=== PATIENT | male | born 1995 | race Caucasian/White ===

== ENCOUNTER 2020-05-10 16:28 | Emergency (ER) | payer OTHER ==
[~2020-05-10] VITALS: Ht 177.8 cm; Wt 72.7 kg
[2020-05-10] MEDS ORDERED: ACETAMINOPHEN 500 MG TABLET PO ONE (17:15)
[2020-05-10 18:00] VITALS: BP 130/85
== END 2020-05-10 18:17 | disposition home or self-care (01) ==
LOC: EMS 16:31
DX: S50.02XA Contusion of left elbow, initial encounter (principal); F17.200 Nicotine dependence, unspecified, uncomplicated; F12.90 Cannabis use, unspecified, uncomplicated; W01.0XXA Fall on same level from slipping, tripping and stumbling without subsequent striking against object, initial encounter; Y93.01 Activity, walking, marching and hiking; Y92.89 Other specified places as the place of occurrence of the external cause; Y99.8 Other external cause status

== ENCOUNTER 2021-11-07 09:31 | Emergency (ER) | payer OTHER ==
[~2021-11-07] VITALS: Ht 185.4 cm; Wt 96.4 kg
[2021-11-07 12:03] LABS: COVID AG,FIA SOURCE NASOPHARYNGEAL
[2021-11-07 12:32] VITALS: BP 110/82
[2021-11-07] MEDS ORDERED: OXYM30SP27 NASAL (12:52)
[2021-11-07] MEDS ORDERED: BENZ-70 PO (12:54)
== END 2021-11-07 13:00 | disposition home or self-care (01) ==
LOC: EMS 09:31
DX: J40 Bronchitis, not specified as acute or chronic (principal); F12.90 Cannabis use, unspecified, uncomplicated; Z20.822 Contact with and (suspected) exposure to COVID-19
CPT/HCPCS: 71045; 99284

== ENCOUNTER 2022-04-06 00:31 | Emergency (ER) | payer OTHER ==
[~2022-04-06] VITALS: Ht 185.4 cm; Wt 94.5 kg
[~2022-04-06 00:31] MED LIST: BENZ-70 PO; OXYM30SP27 NASAL
[2022-04-06] MEDS ORDERED: FAMOTIDINE 20 MG TABLET PO ONE (01:30)
[2022-04-06] MEDS: DEXAMETHASONE 4 MG TABLET PO ONE ×2 (01:39→01:42)
[2022-04-06] MEDS ORDERED: DEXAMETHASONE 4 MG TABLET PO ONE (01:45)
[2022-04-06 02:53] VITALS: BP 119/74
== END 2022-04-06 02:56 | disposition home or self-care (01) ==
LOC: EMS 00:32
DX: T78.40XA Allergy, unspecified, initial encounter (principal); X58.XXXA Exposure to other specified factors, initial encounter; F10.20 Alcohol dependence, uncomplicated; F17.210 Nicotine dependence, cigarettes, uncomplicated; F12.90 Cannabis use, unspecified, uncomplicated
CPT/HCPCS: 99283; 93005; J8540

== ENCOUNTER 2023-02-18 08:33 | Emergency (ER) | payer OTHER ==
[~2023-02-18] VITALS: Ht 185.4 cm; Wt 88.6 kg
[~2023-02-18 08:33] MED LIST changes: +BENZ-227 PO; -BENZ-70 PO
[2023-02-18] MEDS ORDERED: DIPH-1243 PO (08:37)
[2023-02-18 10:07] VITALS: BP 131/74
== END 2023-02-18 10:28 | disposition home or self-care (01) ==
LOC: EMS 08:35
DX: T78.1XXA Other adverse food reactions, not elsewhere classified, initial encounter (principal); F12.90 Cannabis use, unspecified, uncomplicated; Z87.891 Personal history of nicotine dependence; X58.XXXA Exposure to other specified factors, initial encounter
CPT/HCPCS: 99282; Z7502

== ENCOUNTER 2024-10-03 09:40 | Emergency (ER) | payer OTHER ==
[~2024-10-03] VITALS: Ht 185.4 cm; Wt 81.8 kg
[~2024-10-03 09:40] MED LIST changes: -BENZ-227 PO; +DIPH-1243 PO; -OXYM30SP27 NASAL
[2024-10-03 09:55] VITALS: TEMP 98.1
[2024-10-03] MEDS ORDERED: IBUP-1492 PO (11:50)
[2024-10-03] MEDS ORDERED: AMOX250C4 PO (11:50)
[2024-10-03] MEDS: AMOXICILLIN TRIHYDRATE 250 MG CAPSULE PO ONE (11:54)
[2024-10-03 12:10] VITALS: BP 116/62; PULSE 74; RESP 16; O2SAT 99
== END 2024-10-03 12:55 | disposition home or self-care (01) ==
LOC: EMS 09:52
DX: H61.23 Impacted cerumen, bilateral (principal); H66.93 Otitis media, unspecified, bilateral; F12.90 Cannabis use, unspecified, uncomplicated
CPT/HCPCS: 69209; 99283

== ENCOUNTER → 2025-01-06 | Emergency (ER) | payer OTHER ==
[~2025-01-06] VITALS: Ht 182.9 cm; Wt 83.0 kg
[~2025-01-06] MED LIST changes: +AMOX250C4 PO; -DIPH-1243 PO; +IBUP-1492 PO
[2025-01-06 08:55] VITALS: BP 123/66; PULSE 62; RESP 18; TEMP 98.1; O2SAT 99
[2025-01-06] MEDS: IBUPROFEN 600 MG TABLET PO ONE (10:27)
== END | disposition left against medical advice (07) ==
LOC: EMS 08:45
DX: S00.83XA Contusion of other part of head, initial encounter (principal); F12.90 Cannabis use, unspecified, uncomplicated; W19.XXXA Unspecified fall, initial encounter; Y93.89 Activity, other specified; Y92.89 Other specified places as the place of occurrence of the external cause; Y99.8 Other external cause status
CPT/HCPCS: 70110; 99283

== ENCOUNTER → 2025-05-21 16:51 | Emergency (ER) | payer OTHER | END | disposition left against medical advice (07) | LOC: EMS 16:51 | DX: Z53.21 Procedure and treatment not carried out due to patient leaving prior to being seen by health care provider (principal) ==